=== PATIENT | female | born 1965 | race Caucasian/White ===

== ENCOUNTER 2020-10-20 17:42 | Emergency (ER) | payer OTHER ==
[~2020-10-20] VITALS: Ht 172.7 cm; Wt 90.7 kg
[2020-10-21] MEDS ORDERED: DOLOGESIC 500-1 EACH PO (02:35)
== END 2020-10-21 02:44 ==
LOC: ER 17:42
DX: R10.13 Epigastric pain (principal)

== ENCOUNTER 2021-02-28 15:40 | Emergency (ER) | payer OTHER ==
[~2021-02-28] VITALS: Ht 172.7 cm; Wt 90.7 kg
[~2021-02-28 15:40] MED LIST: DOLOGESIC 500-1 EACH PO
[2021-02-28] MEDS ORDERED: DIOVAN40 MG (15:47)
[2021-02-28] MEDS ORDERED: FLAGYL375 MG (15:47)
[2021-02-28] MEDS ORDERED: PEPCID AC20 MG (15:48)
[2021-02-28] MEDS ORDERED: SYNTHROID88 MCG (15:48)
[2021-02-28] MEDS ORDERED: DULCOLAX STOOL100 M1 PO (18:58)
[2021-02-28] MEDS ORDERED: KETO10TA2 PO (18:58)
== END 2021-02-28 19:02 | disposition home or self-care (01) ==
LOC: ER 15:40
DX: R10.2 Pelvic and perineal pain (principal); K62.89 Other specified diseases of anus and rectum
CPT/HCPCS: 74177; Q9965

== ENCOUNTER 2023-07-22 10:41 | Emergency (ER) | payer OTHER ==
[~2023-07-22] VITALS: Ht 172.7 cm; Wt 99.8 kg
[~2023-07-22 10:41] MED LIST changes: +DIOVAN40 MG; +DULCOLAX STOOL100 M1 PO; +FLAGYL375 MG; +KETO10TA2 PO; +PEPCID AC20 MG; +SYNTHROID88 MCG
[2023-07-22] MEDS ORDERED: CELEBREX50 MG PO (11:03)
[2023-07-22] MEDS ORDERED: 0.9 % SODIUM CHLORIDE 1,000 ML IV SCH (11:30)
[2023-07-22] MEDS ORDERED: KETOROLAC TROMETHAMINE 30 MG VIAL IV ONE (11:30)
[2023-07-22 11:58] LABS: HEMATOCRIT 38.5 % (36.0-45.00); HEMOGLOBIN 13.4 g/dL (12.0-15.00); MEAN CELL VOLUME 85.4 fL (80.00-100.00); MEAN CORPUSCULAR HEMOGLOBIN 29.7 pg (27.00-32.0); MEAN CORPUSCULAR HGB CONC 34.8 g/dl (32.0-36.0); PLATELET COUNT 256 K/uL (150-450); RED BLOOD COUNT 4.51 M/uL (4.00-6.00); RED CELL DISTRIBUTION WIDTH 13.5 % (11.5-14.5)
[2023-07-22 12:08] LABS: PH,URINE 5.5 (5.0-8.0); URINE APPEARANCE Clear; URINE BILIRRUBIN Negative (NEGATIVE); URINE BLOOD Negative; URINE COLOR Yellow; URINE GLUCOSE Negative (NEGATIVE); URINE LEUKOCYTE Small; URINE NITRATE Negative; URINE PROTEIN Negative (NEGATIVE); URINE UROBILINOGEN 0.2 E.U./dl
[2023-07-22 12:11] LABS: URINE BACTERIA 88.1 uL (0.0-1933); URINE EPITHELIAL CELLS 6.1 uL (0.0-38.8); URINE RBC 4.4 uL (0.0-20.8); URINE WBC 5.5 uL (0.0-23.2)
[2023-07-22 12:24] LABS: CALCIUM 9.3 mg/dL (8.5-10.1); CREATININE SERUM 0.93 mg/dL (0.55-1.02); GFR 61.71; POTASSIUM 3.69 mEq/L (3.5-5.1)
== END 2023-07-22 15:50 | disposition home or self-care (01) ==
LOC: ER 10:41
PROVIDERS: Emergency Medicine
DX: R07.89 Other chest pain (principal); R10.9 Unspecified abdominal pain; I10 Essential (primary) hypertension; E03.8 Other specified hypothyroidism
CPT/HCPCS: 36415; 74177; Q9965